=== PATIENT | male | born 2000 | race Caucasian/White ===

== ENCOUNTER 2024-05-05 18:37 | Emergency (ER) | payer MEDICAID ==
[~2024-05-05] VITALS: Ht 177.8 cm; Wt 95.3 kg
[2024-05-05 18:39] VITALS: O2SAT 98
[2024-05-05] MEDS ORDERED: IBUP-2028 MT (22:01)
[2024-05-05 22:39] VITALS: BP 119/64; PULSE 72; RESP 17; TEMP 36.7; O2SAT 98
[2024-05-05] MEDS: IBUPROFEN 400MG TABLET PO ONE (22:39)
== END 2024-05-05 22:43 | disposition home or self-care (01) ==
LOC: ER 18:37
DX: R68.84 Jaw pain (principal)
CPT/HCPCS: 99282